=== PATIENT | female | born 1995 | race Caucasian/White ===

== ENCOUNTER 2017-06-04 19:01 | Emergency (ER) | payer OTHER ==
[2017-06-04 20:39] VITALS: BP 125/79
== END 2017-06-04 20:39 | disposition home or self-care (01) ==
LOC: ED 19:01
DX: M54.6 Pain in thoracic spine (principal)

== ENCOUNTER 2018-04-30 14:22 | Emergency (ER) | payer OTHER ==
[~2018-04-30] VITALS: Ht 157.5 cm; Wt 56.7 kg
[2018-04-30 14:24] VITALS: Ht 157.5 cm; Wt 56.7 kg
[2018-04-30 18:21] VITALS: BP 154/72
== END 2018-04-30 18:21 | disposition home or self-care (01) ==
LOC: ED 14:22
DX: S13.4XXA Sprain of ligaments of cervical spine, initial encounter (principal); S00.83XA Contusion of other part of head, initial encounter; S20.212A Contusion of left front wall of thorax, initial encounter; V43.52XA Car driver injured in collision with other type car in traffic accident, initial encounter; Y93.I9 Activity, other involving external motion; Y92.488 Other paved roadways as the place of occurrence of the external cause; Y99.8 Other external cause status